=== PATIENT | female | born 1995 ===

== ENCOUNTER 2018-07-10 16:11 | Emergency (ER) | payer BC ==
[2018-07-10 16:30] VITALS: BP 140/76
--- NOTE | 2018-07-10 16:50 | UC ---
Ear Complaint HPI - HPI Summary HPI Summary: Patient presents to urgent care with her mother. Patient states her ears feel clogged and she's got pressure in the right ear. Patient states she feels like they're clogged with wax. Patient has been using softening drops today without relief. Patient scheduled to go out of town for a week starting tomorrow so came here. Patient denies pain. No sinus congestion. No sore throat. Patient without any other complaints. Patient states she is not . Medications reviewed this visit. - History of Current Complaint Chief Complaint: UCEar Stated Complaint: R EAR COMPLAINT Time Seen by Provider: 07/10/18 16:48 Hx Obtained From: Patient Hx Last Menstrual Period: 1 MONTH AGO Onset/Duration: Gradual Onset Severity Initially: Mild Severity Currently: Mild Pain Intensity: 2 Pain Scale Used: 0-10 Numeric - Allergies/Home Medications Allergies/Adverse Reactions: Allergies Allergy/AdvReac Type Severity Reaction Status Date / Time gluten Allergy Hives Verified 07/10/18 16:30 Home Medications: Home Medications Carbamide Peroxide [Ear Wax Drops] PRN 07/10/18 [History] PMH/Surg Hx/FS Hx/Imm Hx Previously Healthy: Yes - Surgical History Surgical History: Yes Surgery Procedure, Year, and Place: wisdom teeth 2011 - Family History Known Family History: Positive: Non-Contributory - Social History Lives: With Family Alcohol Use: None Substance Use Type: None Smoking Status (MU): Never Smoked Tobacco - Immunization History Most Recent Influenza Vaccination: 2011 Review of Systems All Other Systems Reviewed And Are Negative: Yes Constitutional: Positive: Negative ENT: Positive: Other - right ear pain Physical Exam - Summary Physical Exam Summary: Vital Signs Reviewed: Yes A+Ox3, no distress Eyes: Conjunctiva Clear, ESTEFANI. EOM intact and full ENT: Hearing grossly normal + thick cerumen b/l ears - unable to remove with currette, mmoist, uvula midline, no exudate, no erythema Neck: Positive: Supple Respiratory: Positive: No respiratory distress, No accessory muscle use + CTA throughout no w/r Cardiovascular: RRR nl s1, s2 no m/r CBT <2 sec abd soft + BS nt/nd no guarding, no distension Musculoskeletal Exam: HI x 4 without difficulty Strength Intact, ROM Intact Neurological: Positive: Alert, + sensation throughout Psychological: Positive: Normal Response To Family Skin: Positive: no rash, no ecchymosis Triage Information Reviewed: Yes Vital Signs: Initial Vital Signs Temp 98.3 F 07/10/18 16:26 Pulse 75 07/10/18 16:26 Resp 16 07/10/18 16:26 BP 140/76 07/10/18 16:26 Pulse Ox 100 07/10/18 16:26 Re-Evaluation - Re-Evaluation First Eval Change: Improved - Patient tolerated irrigation very well. Patient states she feels "so much better." Patient's ears are clear TMs visualized. No erythema. Vault. Patient with little bit of irritation on the right canal discussed with patient states understanding agreement with plan. Ear Complaint Course/Dx - Course Course Of Treatment: pt presents to urgent care with pressure in ears b/l. On exam, patient was cerumen impaction bilateral ears right greater than left. Patient unable to tolerate curette removal. We'll reassess. Patient comfortable in agreement with plan. Patient's blood pressure mildly elevated. Recommend patient recheck of help with her primary. Patient states understanding and agreement with plan. - Differential Dx/Diagnosis Provider Diagnosis: Cerumen impaction Discharge - Sign-Out/Discharge Documenting (check all that apply): Patient Departure All imaging exams completed and their final reports reviewed: No Studies - Discharge Plan Condition: Stable Disposition: HOME Patient Education Materials: Cerumen Impaction (ED) Referrals: Annetta Hayes MD [Primary Care Provider] - Additional Instructions: - Okay to use ear softening drops 3 times a day - okay to use over the counter ear flushes - no not insert Q tips inside your ear canal - wax can get stuck Contact your doctor or return with questions or concerns - Billing Disposition and Condition Condition: STABLE Disposition: Home
== END 2018-07-10 17:36 | disposition home or self-care (01) ==
LOC: UCEAST 16:11
DX: H61.23 Impacted cerumen, bilateral (principal)
CPT/HCPCS: 99213; G0463